=== PATIENT | female | born 1960 | race Caucasian/White ===

== ENCOUNTER → 2016-07-26 | Outpatient (CLI) | payer OTHER | LOC: FIMAGING 10:59 | PROVIDERS: ATTEND Internal Medicine Hematology & Oncology | DX: R93.8 Abnormal findings on diagnostic imaging of other specified body structures (principal); M19.011 Primary osteoarthritis, right shoulder; M19.012 Primary osteoarthritis, left shoulder; M17.0 Bilateral primary osteoarthritis of knee; M19.071 Primary osteoarthritis, right ankle and foot; M19.072 Primary osteoarthritis, left ankle and foot; C50.911 Malignant neoplasm of unspecified site of right female breast | CPT/HCPCS: A9503 ==

== ENCOUNTER 2016-09-11 10:26 | Day surgery (SDC) | payer OTHER ==
--- NOTE | 2016-09-09 22:04 | GHP ---
[f rep st] PREOP HISTORY AND PHYSICAL SCHEDULED DATE OF SURGERY: 09/11/2016, at 12 p.m. SURGERY TO BE PERFORMED: Hysteroscopy, dilation and curettage, cervical polypectomy and endometrial polypectomy. PREOPERATIVE DIAGNOSIS: 1. Postmenopausal bleeding. 2. Cervical polyp. 3. Thickened endometrial lining. 4. The patient is on tamoxifen. POSTOPERATIVE DIAGNOSIS: 1. Postmenopausal bleeding. 2. Cervical polyp. 3. Thickened endometrial lining. 4. The patient is on tamoxifen. HISTORY OF PRESENT ILLNESS: The patient is a 55-year-old, 2, para 2-0-2 -2, who was a new patient to me on August 26, 2016. She has a history of postmenopausal bleeding for which she had seen Dr. Miguelina Chang until recently. Her medical history is significant for a diagnosis of right breast cancer in 2014 status post mastectomy and chemotherapy and radiation and she is now on postoperative tamoxifen. She reports being perimenopausal since age 53, having some irregular cycles but then heavy cycles over the past couple years. She has not had a period for several months and then began having bleeding again. In February of 2016, she saw Dr. Chang for postmenopausal bleeding and had an evaluation. At that time she was seen to have a cervical polyp which was removed and was benign and she had an endometrial biopsy that showed inactive endometrium. Prior to that she had another endometrial biopsy in September of 2014, also for postmenopausal bleeding and that was also negative for hyperplasia. She continues to have bleeding that waxes and wanes and is concerned about the role of tamoxifen in this. I performed an ultrasound which revealed a thickened endometrial stripe that was 1.05 cm. The endometrium was 10 mm and appeared to have be hypervascular with feeder vessels throughout the endometrium but no discrete masses were seen. Ovaries were normal. On pelvic exam, she also has an obvious large cervical polyp, approximately 2-3 cm in length coming from her cervical os. Because of the concern for rapidly regrown cervical polyp as well as a rapidly thickened endometrium with hypervascularity , and the fact that the patient has been on tamoxifen which is known to stimulate the endometrium, I am concern for possible endometrial pathology and I explained to the patient that I feel that surgical evaluation would be the most thorough evaluation to get a clear diagnosis and treatment. We decided to proceed with cervical polypectomy in the operating room, hysteroscopy, dilation and curettage and endometrial polypectomy to get a full pathologic diagnosis and to evaluate the next steps for her uterus and her tamoxifen therapy. I have also consulted with Dr. Francheska Joe, who is her Oncologist, who is in agreement about this plan. PAST MEDICAL HISTORY: Right breast cancer diagnosed in 2013, invasive ductal stage II. She has had chemotherapy, mastectomy as well as radiation therapy and she reports being postmenopausal since 2013 except these episodes of postmenopausal bleeding. She did have a history of an abnormal Pap years ago. Repeat Paps were negative. Denies any history of sexually transmitted diseases or any gynecological problems. PAST OB HISTORY: She did have 2 spontaneous vaginal deliveries without complications. Babies were 8 pounds and 8 pounds 13 ounces and then she had 2 early miscarriages around 6 weeks, spontaneous, no D and C's were needed. PAST SURGICAL HISTORY: Right breast mastectomy in March 2014 and she has had pins in her ankle in 1979 secondary to a fracture. ALLERGIES: She has no known drug allergies. CURRENT MEDICATIONS: Tamoxifen 20 mg daily. SOCIAL HISTORY: She is . She lives with her and her 2 sons. She is a story writer and also homemaker. She denies tobacco, drinks about 2 drinks a week. No marijuana use or any other drug use. Moderate exercise, walking 2- 5 times a week. FAMILY HISTORY: Mother and father with heart disease. Mom has had a small stroke and also has depression and bipolar disorder. She has a great aunt who had breast cancer. No other significant family history. REVIEW OF SYSTEMS: Current review of systems is negative for a full 10-point review of systems. Patient is generally feeling well. Has no overall complaints. OBJECTIVE: VITAL SIGNS: Blood pressure is 98/54. Weight is 213 pounds. She is 5 feet 6 inches. GENERAL: She is a well-developed, well-nourished female, in no acute distress. LUNGS: Clear to auscultation bilaterally. HEART: Regular rate and rhythm. No murmurs. ABDOMEN: Soft, nontender, nondistended. Normal bowel sounds. PELVIC: Normal external genitalia, slightly atrophic changes. Cervix has a large finger-like polyp coming from the os that is 2 x 3 cm. The uterus is anteverted, anteflexed, mobile, nontender, nondistended. No masses are palpated. IMAGING: Ultrasound results were as above. ASSESSMENT AND PLAN: A 55-year-old 4, para 2-0-2-2 with history of breast cancer on tamoxifen with postmenopausal bleeding, a large, rapidly developing cervical polyp, and thickened endometrial lining with hypervascularity. She will undergo a hysteroscopy, dilation and curettage, cervical polypectomy and endometrial polypectomy with a morcellator. She was consented for the procedure today. She understood the risks and benefits. The risks including bleeding, infection, damage to the uterus including possible risk of perforation, damage to other organs if perforation were to occur, risk of the electrolyte imbalances and needing additional procedures. She understood these risks and benefits, agreed to proceed. /[id number]/MODL MTDD
[~2016-09-11 10:26] MED LIST: MIDAZOLAM 2 MG/2 ML VIAL IVP ONE
[2016-09-11] MEDS ORDERED: SILVER NITRATE APPLICATOR 1 APPL TP ONE (10:38)
[2016-09-11] MEDS ORDERED: LR 1,000 ML IV ONE (10:54)
[2016-09-11 11:08] VITALS: PULSE 63
[2016-09-11 11:32] LABS: % IMMATURE GRANULYOCYTES 0.2 % (0.0-1.1); ABSOLUTE IMMATURE GRANULOCYTES 0.01 10^3/uL (0.00-0.10); ADD DIFF? NO; ADD MORPH? NO; ADD SCAN? NO; ATYPICAL LYMPHOCYTE FLAG 0 (0-99); FRAGMENT RBC FLAG 0 (0-99); HEMATOCRIT 35.2 % (38.0-47.0); HEMOGLOBIN 12.2 g/dL (12.6-16.3); LEFT SHIFT FLG 0 (0-99); LIPEMIA HEMOLYSIS FLAG 90 (0-99); MEAN CELL HEMOGLOBIN 31.3 pg (27.9-34.1); MEAN CELL HEMOGLOBIN CONCENTR. 34.7 g/dL (32.4-36.7); MEAN CELL VOLUME 90.3 fL (81.5-99.8); PLATELET CLUMPS FLAG 0 (0-99); PLATELET COUNT 189 10^3/uL (150-400); RED CELL DISTRIBUTION WIDTH 12.5 % (11.5-15.2)
[2016-09-11] MEDS ORDERED: ceFAZolin 2 GM/DEXTROSE 100 ML IV ONE (11:43)
--- NOTE | 2016-09-11 12:18 | PDANEPAE ---
ANE History of Present Illness 55 year old otherwise healthy female with history of breast cancer s/p Right mastectomy, radiation and chemotherapy. Completed treatment June 2014. Denies URI the last 6 weeks. No other medical problems. 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 She is on tamoxfen currently. No issues with general anesthesia in the past. ANE Past Medical History - Cardiovascular History Hx Hypertension: No Hx Arrhythmias: No Hx Chest Pain: No Hx Coronary Artery / Peripheral Vascular Disease: No Hx CHF / Valvular Disease: No Hx Palpitations: No - Pulmonary History Hx COPD: No Hx Asthma/Reactive Airway Disease: No Hx Recent Upper Respiratory Infection: No Hx Oxygen in Use at Home: No - Neurologic History Hx Cerebrovascular Accident: No Hx Seizures: No Hx Dementia: No - Endocrine History Hx Diabetes: No - Renal History Hx Renal Disorders: No - Liver History Hx Hepatic Disorders: No - Neurological & Psychiatric Hx Hx Neurological and Psychiatric Disorders: No - Cancer History Hx Cancer: Yes - Congenital Disorder History Hx Congenital Disorders: No - GI History Hx Gastrointestinal Disorders: No - Chronic Pain History Chronic Pain: No ANE Review of Systems - Exercise capacity METS (RN): 6 METS ANE Patient History - Allergies Allergies/Adverse Reactions: No Known Allergies Allergy (Unverified 09/10/16 14:22) - Home Medications Home Medications: Acetaminophen [Tylenol ES 500 mg (*)] 1,000 mg PO DAILY PRN 04/09/14 [Last Taken 09/06/16] Ibuprofen [Motrin (*)] 400 mg PO DAILY PRN 04/09/14 [Last Taken 09/08/16] Tamoxifen Citrate 09/10/16 [Last Taken 09/10/16 21:00] - NPO status NPO Since - Liquids (Date): 09/10/16 NPO Since - Liquids (Time): 22:00 NPO Since - Solids (Date): 09/10/16 NPO Since - Solids (Time): 22:00 - Anes Hx Anes Hx: no prior problems - Smoking Hx Smoking Status: Never smoked - Family Anes Hx Family Hx Anesthesia Complications: NONE ANE Labs/Vital Signs - Labs Result Diagrams: 09/11/16 11:20 - Vital Signs Blood Pressure: 113/70 Heart Rate: 63 Respiratory Rate: 15 O2 Sat (%): 93 Height: 170.18 cm Weight: 90.718 kg ANE Physical Exam - Airway Neck exam: FROM Mallampati Score: Class 1 Mouth exam: normal dental/mouth exam - Pulmonary Pulmonary: no respiratory distress - Cardiovascular Cardiovascular: regular rate and rhythym - ASA Status ASA Status: II ANE Anesthesia Plan Anesthesia Plan: GA w LMA Urgent/Emergent Case: Bryon jones completed preop but documented later for safe timely pt care
[2016-09-11] MEDS ORDERED: fentaNYL 100 MCG/2 ML INJ ONE (12:26)
[2016-09-11] MEDS ORDERED: ONDANSETRON 4 MG/2 ML VIAL ONE (12:26)
[2016-09-11] MEDS ORDERED: PROPOFOL 200 MG/20 ML VIAL ONE (12:26)
[2016-09-11] MEDS ORDERED: HYDROmorphONE/DILAUDID 1 MG/ML SYR IVP PRN (12:54)
[2016-09-11] MEDS ORDERED: NALOXONE HCL 0.4 MG/ML INJ IVP PRN (12:54)
[2016-09-11] MEDS ORDERED: PROMETHAZINE HCL 25 MG/ML INJ IVP PRN (12:54)
[2016-09-11] MEDS ORDERED: OXYCODONE/APAP 5/325 TAB PO PRN (12:54)
[2016-09-11] MEDS ORDERED: fentaNYL 100 MCG/2 ML INJ IVP PRN (12:54)
[2016-09-11] MEDS ORDERED: LR 500 ML IV PRN (12:54)
[2016-09-11] MEDS ORDERED: MEPERIDINE 25 MG/ML SYR IVP PRN (12:54)
--- NOTE | 2016-09-11 13:17 | POSTOPPROG ---
Post Op Note Date of Operation: 09/11/16 Surgeon: Mai Constantino Anesthesiologist: Stevenson Anesthesia: GET(General Endotracheal) Pre-op Diagnosis: post menopausal bleeding, cervical polyp Post-op Diagnosis: same Indication: post menopausal bleeding, cervical polyp Procedure: cervical polypectomy, hysteroscopy dilation and currettage polypectomy Findings: large polyp origionating in the endometrium extending through the cervix Inf/Abcess present in the surg proc area at time of surgery?: No Depth: Organ Space EBL: 50-100 Total fluids administered: 700 IVF and 750 fluid deficit in uterus Complications: none Specimen(s): cervical polyp and endometrial polyp with currettings
[2016-09-11] MEDS ORDERED: ACETAMINOPHEN 325 MG TAB ONE (13:54)
[2016-09-11 14:06] VITALS: RESP 10; O2SAT 97
[2016-09-11] MEDS ORDERED: ACETAMINOPHEN 325 MG TAB PO PRN (14:06)
[2016-09-11] MEDS ORDERED: IBUPROFEN 800 MG TAB PO ONE (14:08)
--- NOTE | 2016-09-11 14:09 | POSTANESTH ---
Post Anesthetic Evaluation Cardiovascular Status: Normal, Stable Respiratory Status: Normal, Stable Level of Consciousness/Mental Status: Can Participate in Eval Pain Control: Adequate, Prn Tx Ordered Nausea/Vomiting Control: Adequate, Prn Tx Ordered Complications Possibly Related to Anesthesia: None Noted
[2016-09-11 15:03] VITALS: BP 135/71
[2016-09-11 15:34] VITALS: TEMP 97.7
--- NOTE | 2016-09-11 20:30 | GOP ---
[f rep st] OPERATIVE REPORT DATE OF OPERATION: 09/11/2016 SURGEON: Mai Constantino MD ANESTHESIA: Dr. Gamino, general anesthesia. PREOPERATIVE DIAGNOSIS: Postmenopausal bleeding and cervical and endometrial polyp. The patient is on tamoxifen for breast cancer. POSTOPERATIVE DIAGNOSIS: Postmenopausal bleeding and cervical and endometrial polyp. The patient i s on tamoxifen for breast cancer. PROCEDURE PERFORMED: A cervical polypectomy, hysteroscopy, dilation and curettage, and endometrial polypectomy with morcellator. FINDINGS: ESTIMATED BLOOD LOSS: For the procedure, less than 20 cc. DESCRIPTION OF PROCEDURE: INDICATION FOR PROCEDURE: The patient is a 55-year-old 2, para 2-0-2-2, who had a history o f postmenopausal bleeding for which she was seeing another physician until recently. Her medical hi story is significant for right breast cancer diagnosed in 2013, status post mastectomy, chemotherapy , and radiation, and now is on postoperative tamoxifen. She reports being postmenopausal since age 53, and began having increased bleeding in the last couple months she had a cervical polypectomy per formed in the office in February 2016, and that polyp was benign. She also had an endometrial biops y that showed inactive endometrium. I performed an ultrasound, which showed a thickened endometrial stripe that was 1.05 cm and appeared to have hypervascularity with feeder vessels throughout the en dometrium, but no discrete masses were seen. Ovaries were normal. On pelvic exam, she had an obvio us large cervical polyp approximately 2-3 cm that was protruding from the internal os. Because of t he rapid nature that this cervical polyp had re-grown, as well as the hypervascular nature of the ul trasound findings, I decided to not attempt a cervical polypectomy in the office, but instead to luann e her to the operating room for a full evaluation of her endometrium in the setting of abnormalities , especially with the patient on tamoxifen. The patient was consented for the procedure. She under stood the risks and benefits with the risks, including bleeding, infection, damage to the uterus inc luding possible risk of perforation, damage to other organs if perforation were to occur, and need f or additional procedures. She understood these risks and benefits and agreed to proceed. PROCEDURE PERFORMED: Patient was taken to the operating room where she was placed under general ane sthesia without difficulty. She was prepped and draped in the dorsal lithotomy position. After a W HO time-out was performed, an open-sided speculum was placed in the vagina, and used to visualize th e parous cervix. She had a large, finger-like projection of a cervical polyp projecting from her ce rvix. I grasped that with sponge sticks and tried to remove in a circumferential fashion, and the p olyp came out in segments and pieces but was not fully removed; it was a deep thick stalk. The cerv ix was then grasped with a Craft tenaculum and the uterus sounded to 9 cm. The operative hysterosc ope was then gently advanced from the cervix to the fundus (the cervix did not need to be dilated) a nd visualization was performed. The polyp that protruded from the cervix was actually visualized to originate from the endometrium at the level of the right fundus. I advanced the morcellator throug h the operative channel and I performed a window lock. Then I morcellated the polyp through the ent robin endometrium without difficulty in finding the stalk at the fundal area of the endometrium. Both tubal ostia were then visualized. There were small other areas of redundancy in the endometrial wa ll that I morcellated, and the uterus was then visualized clean. The hysteroscope was removed, and I performed a curettage in a clockwise fashion until a gritty texture was palpated throughout the en tire endometrial cavity. The tenaculum was removed; there was no bleeding from the cervix, and the speculum was removed. Patient tolerated the procedure well. Sponge, lap, needle, and instrument co unts were correct x2. Patient went to the recovery room in good condition. FLUID REPLACEMENT: IV fluid crystalloid with 700. Fluid deficit through the hysteroscope was 770. URINE OUTPUT: Not measured. PATHOLOGIC SPECIMEN: Will be cervical polyp, endometrial polyp, and endometrial curettings. /[id number]/MODL
== END 2016-09-11 15:00 | disposition home or self-care (01) ==
LOC: FSGY 10:26
PROVIDERS: ATTEND Obstetrics & Gynecology
PROC: 0UDB8ZX Extraction of Endometrium, Via Natural or Artificial Opening Endoscopic, Diagnostic (ICD-10-PCS; principal; 2016-09-11 12:00)
DX: N95.0 Postmenopausal bleeding (principal); N84.0 Polyp of corpus uteri; C50.919 Malignant neoplasm of unspecified site of unspecified female breast
CPT/HCPCS: 58563; C1782; J0690; J2405; J2704; J3010

== ENCOUNTER → 2016-10-04 | Outpatient (CLI) | payer OTHER | LOC: FIMAGING 14:48 | PROVIDERS: ATTEND Surgery | DX: N64.4 Mastodynia (principal); Z85.3 Personal history of malignant neoplasm of breast; Z90.11 Acquired absence of right breast and nipple | CPT/HCPCS: G0206 ==

== ENCOUNTER → 2017-02-20 | Outpatient (CLI) | payer OTHER | LOC: FIMAGING 08:09 | PROVIDERS: ATTEND Family Medicine | DX: J40 Bronchitis, not specified as acute or chronic (principal); S22.31XA Fracture of one rib, right side, initial encounter for closed fracture ==

== ENCOUNTER → 2017-06-24 | Outpatient (CLI) | payer OTHER | LOC: FIMAGING 09:59 | PROVIDERS: ATTEND Internal Medicine Hematology & Oncology | DX: R07.81 Pleurodynia (principal); C50.411 Malignant neoplasm of upper-outer quadrant of right female breast | CPT/HCPCS: 78306; A9503 ==

== ENCOUNTER → 2017-10-06 | Outpatient (CLI) | payer OTHER | LOC: FIMAGING 10:02 | PROVIDERS: ATTEND Internal Medicine Hematology & Oncology | DX: Z12.31 Encounter for screening mammogram for malignant neoplasm of breast (principal) ==

== ENCOUNTER 2018-08-28 02:17 | Emergency (ER) | payer OTHER | END 2018-08-28 03:36 | disposition home or self-care (01) ==